=== PATIENT | male | born 1990 | race Caucasian/White ===

== ENCOUNTER 2018-06-21 17:02 | Inpatient (IN) | payer OTHER ==
[2018-06-21] MEDS ORDERED: MANNITOL 20% 100 GM/500 ML BAG IV ONE ×2 (17:09→20:22)
[2018-06-21] MEDS ORDERED: ONDANSETRON 4 MG/2 ML VIAL ONE (17:11)
[2018-06-21] MEDS ORDERED: CEFAZOLIN 1 GM/DEXTROSE/50 ML BAG IV ONE ×2 (17:12→17:13)
[2018-06-21] MEDS ORDERED: ONDANSETRON 4 MG/2 ML VIAL IVP ONE (17:12)
[2018-06-21] MEDS ORDERED: ceFAZolin 2 GM/DEXTROSE 100 ML IV ONE (17:17)
[2018-06-21] MEDS ORDERED: levETIRAcetam 1000MG/NACL 100 ML IV ONE ×2 (17:30→17:48)
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
[2018-06-21] MEDS ORDERED: fentaNYL 100 MCG/2 ML INJ IVP ONE ×5 (17:35→19:27)
[2018-06-21] MEDS ORDERED: PANTOPRAZOLE SODIUM 40 MG VIAL IVP ONE (17:50)
[2018-06-21] MEDS ORDERED: fentanYL/NACL/100 ML BAG IV ONE (17:50)
[2018-06-21] MEDS ORDERED: NS 1,000 ML IV ONE ×2 (17:55→18:45)
[2018-06-21] MEDS ORDERED: fentaNYL/NACL 100 ML IV SCH ×2 (18:00)
[2018-06-21] MEDS ORDERED: KETAMINE 500 MG/10 ML VIAL IVP ONE (18:12)
[2018-06-21] MEDS ORDERED: fentaNYL 100 MCG/2 ML INJ ONE ×2 (19:01→19:50)
[2018-06-21] MEDS ORDERED: VECURONIUM BROMIDE 10 MG VIAL IV ONE (19:27)
[2018-06-21] MEDS ORDERED: VECURONIUM BROMIDE 10 MG VIAL ONE (19:50)
[2018-06-21] MEDS ORDERED: KETAMINE 200 MG/20 ML VIAL ONE (19:51)
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
[2018-06-21 20:13] LABS: PLATELET COUNT 245 10^3/uL (150-400)
[2018-06-21] MEDS ORDERED: PROPOFOL 200 MG/20 ML VIAL ONE (20:17)
[2018-06-21] MEDS ORDERED: BACITRACIN ZINC 14.2 GM OINTTUBE TP ONE ×2 (20:18→21:45)
[2018-06-21] MEDS ORDERED: ROCURONIUM 50 MG/5 ML VIAL ONE (20:18)
[2018-06-21] MEDS ORDERED: BUPIVACAINE/EPI 0.25% 30 ML SDV ONE (20:18)
[2018-06-21] MEDS ORDERED: AVITENE POWDER 1 GM JAR TP ONE (20:19)
[2018-06-21] MEDS ORDERED: GENTAMICIN SULFATE 80 MG/2 ML VIAL ONE (20:19)
[2018-06-21] MEDS ORDERED: CHLORHEXIDINE GLUC HIBICLENS 118 ML BTL TP ONE (20:20)
[2018-06-21] MEDS ORDERED: SURGIFLO MATRIX KIT WITH THROMBIN 8 ML TP ONE (20:21)
[2018-06-21] MEDS ORDERED: THROMBIN (BOVINE) 5,000 UNIT VIAL TP ONE ×2 (20:22→20:34)
[2018-06-21] MEDS ORDERED: POVIDONE-IODINE 30 GM OINTTUBE TP ONE (20:22)
[2018-06-21] MEDS ORDERED: levETIRAcetam 500MG/NACL 100 ML IV ONE (20:30)
[2018-06-21] MEDS ORDERED: NOREPINEPHRINE BITARTRATE 4 MG in NS 500 ML IV SCH (20:30)
[2018-06-21] MEDS ORDERED: MANNITOL 20% 250 ML IV ONE (20:30)
[2018-06-21] MEDS ORDERED: niCARdipine/NACL 200 ML IV ONE (20:30)
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
[2018-06-21] MEDS ORDERED: PETROLAT,WHT/MIN OIL/SOD CHL 3.5 GM OPHT.OINT ONE (20:42)
[2018-06-21 20:43] LABS: INR 2.42 (0.83-1.16); PROTIME(PATIENT) 26.3 SEC (12.0-15.0)
[2018-06-21 20:44] LABS: INR 1.71 (0.83-1.16); PROTIME(PATIENT) 20.2 SEC (12.0-15.0)
[2018-06-21] MEDS ORDERED: NALOXONE HCL 0.4 MG/ML INJ IVP PRN (20:46)
[2018-06-21] MEDS ORDERED: PETROLAT,WHT/MIN OIL/SOD CHL 3.5 GM OPHT.OINT EACHEYE PRN (20:46)
[2018-06-21] MEDS ORDERED: ONDANSETRON DISINTEGRATING 4 MG TAB PO PRN (20:46)
[2018-06-21] MEDS ORDERED: HYDROmorphONE/DILAUDID 1 MG/ML INJ IVP PRN (20:58)
[2018-06-21 21:00] LABS: PLATELET COUNT 172 10^3/uL (150-400)
[2018-06-21] MEDS ORDERED: ACETAMINOPHEN 500 MG TAB PO SCH (21:00)
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
[2018-06-21 21:06] LABS: PLATELET COUNT 245 10^3/uL (150-400)
[2018-06-21] MEDS ORDERED: ceFAZolin 1 GM VIAL ONE ×2 (21:08)
[2018-06-21] MEDS ORDERED: ALBUMIN 5% 250 ML BOTTLE IV ONE (21:38)
--- NOTE | 2018-06-21 22:28 | POSTOPPROG ---
Post Op Note Date of Operation: 06/21/18 Surgeon: Yehuda Merino Supervising Architect: Baldomero Rodriguez PA_C Anesthesia: GET(General Endotracheal) Pre-op Diagnosis: severe blunt head trauma with malignant intracranial hypertension Post-op Diagnosis: same Indication: very elevated ICPs, medically intractable Procedure: left decompressive hemicraniectomy Findings: diffusely and severely swollen cerebral hemisphere Inf/Abcess present in the surg proc area at time of surgery?: No Depth: Organ Space EBL: 50-100 Total fluids administered: per anesthesia Complications: none other than due to nature of his disease Drains: Chintan Kelsey (#7 to suction)
--- NOTE | 2018-06-21 22:38 | POSTOPPROG ---
Post Op Note Date of Operation: 06/21/18 Surgeon: Yehuda Merino Needle Valve Operator: Baldomero Rodriguez Anesthesiologist: Jose Anesthesia: GET(General Endotracheal) Pre-op Diagnosis: Suboccipital hemorrhage, Left SDH Post-op Diagnosis: same Indication: elevated ICP Procedure: Left hemicraniectomy Findings: severe edema, left SDH Inf/Abcess present in the surg proc area at time of surgery?: No EBL: 100-500 Complications: None Drains: Chintan Kelsey (to dimple suction)
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
--- NOTE | 2018-06-21 22:48 | POSTANESTH ---
Post Anesthetic Evaluation Cardiovascular Status: Similar to Pre-Op Cond (on levophed.) Respiratory Status: Similar to Pre-op Cond. (on 100% O2, O2Sat 99,) Level of Consciousness/Mental Status: Other, See Comment (On ventilator, being sedated.) Complications Possibly Related to Anesthesia: None Noted
[2018-06-21] MEDS ORDERED: ALBUMIN 5% 500 ML BOTTLE IV ONE (22:54)
[2018-06-21] MEDS ORDERED: ALBUMIN 5% 500 ML IV ONE (23:00)
[2018-06-21 23:04] LABS: INR 1.85 (0.83-1.16); PROTIME(PATIENT) 21.4 SEC (12.0-15.0)
[2018-06-21] MEDS ORDERED: SODIUM BICARBONATE 50 MEQ/50 ML SYR ONE ×2 (23:20→23:22)
[2018-06-21] MEDS: PHENYLEPHRINE HCL 50 MG in NS 250 ML IV SCH (23:28)
[2018-06-21] MEDS: PROPOFOL/EMULSION 100 ML IV SCH (23:29)
[2018-06-21] MEDS: SODIUM Cl 3% 500 ML IV SCH (23:29)
--- NOTE | 2018-06-21 23:40 | POSTOPPROG ---
Post Op Note Date of Operation: 06/21/18 Surgeon: Ravi Mccloud Pre-op Diagnosis: Multiple trauma Post-op Diagnosis: Multiple trauma Indication: Monitoring Procedure: Placement of right femoral A-line Findings: Multiple trauma Inf/Abcess present in the surg proc area at time of surgery?: No
--- NOTE | 2018-06-21 23:44 | POSTOPPROG ---
Post Op Note Date of Operation: 06/21/18 Surgeon: Ravi Mccloud Pre-op Diagnosis: Multiple trauma Post-op Diagnosis: Multiple trauma Indication: Monitoring, venous access Procedure: Left supraclavicular access to subclavian vein Findings: Multiple trauma Inf/Abcess present in the surg proc area at time of surgery?: No
[2018-06-22] MEDS: VECURONIUM BROMIDE 50 MG in D5W 50 ML IV SCH ×4 (00:06→23:25)
[2018-06-22 00:08] LABS: INR 1.78 (0.83-1.16); PROTIME(PATIENT) 20.8 SEC (12.0-15.0)
--- NOTE | 2018-06-22 00:29 | GOP ---
DATE OF OPERATION: 06/21/2018 SURGEON: Ravi Mccloud MD PREOPERATIVE DIAGNOSIS: Multiple trauma. POSTOPERATIVE DIAGNOSIS: Multiple trauma. PROCEDURE PERFORMED: Placement of a right femoral arterial line. FINDINGS: Multiple trauma. INDICATIONS: Monitoring. DESCRIPTION OF PROCEDURE: This patient was hypotensive. I felt that most expeditious way to achieve arterial monitoring was to placed a right femoral A- line. The groin was carefully clipped, prepped, and draped. Time-out was agreed to by the ICU staff. The artery was punctured on the first pass. The guidewires was threaded. Needle was removed, leaving the guidewire in place. The arterial catheter was carefully fed over the guidewire. It was secured in place with a stitch. A Biopatch was placed. The guidewire was then removed and was connected to a monitoring device. Tegaderm was placed over it. There was a good waveform identified. The patient tolerated the procedure well. /[id number]/MODL MTDD
[2018-06-22] MEDS ORDERED: PROTOCOL MAGNESIUM 1 DOSE IV PRN (00:30)
[2018-06-22] MEDS ORDERED: PROTOCOL K PHOSPHATE 1 DOSE IV PRN (00:30)
[2018-06-22] MEDS ORDERED: PROTOCOL CALCIUM 1 DOSE IV PRN (00:30)
[2018-06-22] MEDS ORDERED: PROTOCOL POTASSIUM 1 DOSE MISC PRN (00:30)
--- NOTE | 2018-06-22 00:34 | GPN ---
DATE OF PROCEDURE: 06/21/2018 PREOPERATIVE DIAGNOSIS: Multiple trauma. INDICATION: Monitoring and venous access. POSTOPERATIVE DIAGNOSIS: Multiple trauma. FINDINGS: Multiple trauma. NAME OF PROCEDURE: Placement of a left supraclavicular subclavian central line. DESCRIPTION OF PROCEDURE: The patient was carefully positioned in the Trendelenburg position. He thomas d received a fluid bolus to maximize the venous distention. Full sterile field was developed. Subcl celine approach was tried without success. After three passes, I opted to not pursue this approach fu rther. Supraclavicular approach was tried, and on the very first pass I accessed the subclavian vein via the supraclavicular approach. A guidewire was fed centrally. The syringe and needle were remov ed over the guidewire. The skin was incised. A dilator was carefully passed and removed. The tripl e-lumen catheter, whose blue and white ports had been capped with Hep-Lock adapters and flushed with saline, was carefully passed over the guidewire. It was passed centrally to a point of 15 cm. The g uidewire was removed. A Hep-Lock adapter was placed on the brown port. The brown port was flushed. The line was secured at the skin level and on the anterior chest with 3-0 silk suture. Biopatch was applied. Tegaderm was placed. A chest x-ray showed the line to be in good position. /[id number]/MODL
[2018-06-22] MEDS ORDERED: CALCIUM GLUCONATE 50 ML IV ONE ×2 (01:11→05:25)
[2018-06-22] MEDS ORDERED: MANNITOL 20% 125 ML IV ONE (01:15)
[2018-06-22] MEDS: fentaNYL/NACL 100 ML IV SCH ×4 (02:45→23:25)
[2018-06-22] MEDS: ACETAMINOPHEN 650 MG/20.3 ML UDCUP PO SCH ×2 (03:28→13:08)
[2018-06-22] MEDS: PROPOFOL/EMULSION 100 ML IV SCH ×4 (03:29→21:54)
[2018-06-22] MEDS: NOREPINEPHRINE BITARTRATE 4 MG in NS 500 ML IV SCH ×3 (03:42→12:41)
[2018-06-22] MEDS: SODIUM Cl 3% 500 ML IV SCH ×3 (03:44→23:31)
[2018-06-22 04:51] LABS: INR 1.54 (0.83-1.16); PROTIME(PATIENT) 18.6 SEC (12.0-15.0)
[2018-06-22] MEDS: CLINDAMYCIN 600 MG/DEXTROSE 50 ML IV SCH ×3 (05:11→21:02)
[2018-06-22] MEDS ORDERED: MANNITOL 25% 12.5 GM/50 ML VIAL IVP ONE (05:15)
[2018-06-22] MEDS ORDERED: MAGNESIUM SULF 2 GM/WATER 50 ML IV ONE (05:25)
[2018-06-22] MEDS ORDERED: ALBUMIN 5% 500 ML IV ONE (05:30)
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
[2018-06-22] MEDS: POTASSIUM Cl (KCl) 50 ML IV SCH ×3 (08:20→11:09)
[2018-06-22] MEDS ORDERED: MANNITOL 25% 12.5 GM/50 ML VIAL IV ONE ×2 (08:45→16:30)
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
--- NOTE | 2018-06-22 09:57 | GCON ---
CRITICAL CARE CONSULT DATE OF CONSULTATION: 06/21/2018 HISTORY OF PRESENT ILLNESS: This patient is a 27-year-old male who [facility] into a tree at [place] without a helmet. He was down for an unknown period of time before EMS arrived. He was intubated in the field with a cervical collar placed and was taken to the operating room where he required an emergent decompression craniotomy and had mandibular fractures. Hermilo shell also had 3rd rib fracture and his surgery involved a left decompressive hemicraniectomy due to diff use and severe swollen cerebral hemispheres. There were no obvious surgical complications. He returne d to the intensive care unit on a ventilator. Blood gas drawn at the time of arrival, however, showed a pH of 7.13, pCO2 of 66, pO2 of 30, bicarb of 22 with a saturation of 39% despite an oxygen saturat ion in the 90s on the monitor. This was suspicious for venous gas; however, due to close correlations with pH and CO2 on venous blood gases, his respiratory rate was increased to 30 and a new gas is pen ding at this time. REVIEW OF SYSTEMS: Unable to be obtained. PAST MEDICAL HISTORY: None. PAST SURGICAL HISTORY: Unable to be obtained. PREVIOUS MEDICATIONS: Unknown. PHYSICAL EXAM: VITAL SIGNS: He has been afebrile. He was 34.8 on arrival, now 37, heart rate 120, re spiratory rate of 39, oxygen saturation 97%. He is on assist control with a rate of 30, tidal volume of 600, FiO2 60% and 5 of PEEP. GENERAL: He is obtunded. HEENT: Pupils appear to be fixed. He has of 7.[address]. LUNGS: His breath sounds were remarkably clear and equal bilaterally without obvious subcutaneous emphysema in his neck. He did appear to be in some respiratory distress taking deep breaths with variable tidal volumes on the ventilator. HEART: Regular rate and rhythm wit hout murmurs, rubs, gallops. ABDOMEN: Soft, nontender, nondistended without hepatosplenomegaly. EXTRE MITIES: Show no clubbing, cyanosis, or edema. OBJECTIVE DATA: Includes a chest x-ray from earlier today at 1934 showing severe diffuse bilateral i nfiltrates, certainly worse in the right upper lung zone, but in both with relative sparing of the le ft lower lobe. A repeat film that was performed at 2326 shows improvement in infiltrates. The endotra cheal tube is in adequate position. There is no subcutaneous air. There is a small apical pneumothora x as pointed out by the radiologist and there are displaced 3rd and 4th rib fractures. White count was last measured at 14.9, hematocrit 35, and platelets of 172. Repeat is pending. His la st coags were drawn at 2245, his INR was 1.8. A basic metabolic panel drawn at 2245 shows sodium 143, potassium 4.2, chloride 112, bicarb 24, BUN 11, creatinine 1.1, glucose 121. LFTs drawn earlier toda y were normal. ASSESSMENT/PLAN: 1. Severe blunt trauma with significant head injury and bilateral infiltrates on his chest x-ray, co mplicated by a tiny pneumothorax. In terms of the infiltrates, this could easily be contusion, there is showing rapid improvement or pulmonary edema, such as might be seen in neurogenic pulmonary edema. His oxygen saturation seems to be quite stable and we can continue to titrate the FiO2. I do not fee l that additional diuretics are indicated at this time, though mannitol may be considered from a neur osurgery perspective. In addition, I would like to give him antibiotics. He received Ancef perioperat ively and may have a penicillin allergy, so clindamycin would be my second choice and will see what h is white count does, as well as temperature curve, and chest x-ray after that. 2. Respiratory acidosis. There was some concern about the blood gas being drawn from central line an d dilutional issues. The respiratory rate was increased and a repeat blood gas is pending at this robi e, and I would like to err on the side of hyperventilation, rather than hypoventilation at least for the first 24 hours to minimize increased intracranial pressure. 3. Tiny possible pneumothorax on the chest x-ray. I have looked at this film myself, along with Dr. Mccloud. It is very small and we both agree that no direct intervention is required at this time and w e will continue to follow with serial chest x-rays. A total of about 55 minutes of critical care time was required for this patient. /[id number]/MODL
[2018-06-22] MEDS: FAMOTIDINE 20 MG/NACL 50 ML IV SCH ×2 (10:37→20:58)
[2018-06-22 10:42] LABS: PLATELET COUNT 90 10^3/uL (150-400)
[2018-06-22] MEDS: PHENYLEPHRINE HCL 50 MG in NS 250 ML IV SCH ×2 (11:01→15:36)
[2018-06-22] MEDS ORDERED: levETIRAcetam 500 MG/5 ML UDCUP PO SCH (11:45)
[2018-06-22] MEDS ORDERED: K PHOS 20 MMOL in D5W 250 ML IV ONE (12:00)
--- NOTE | 2018-06-22 13:45 | SOAPPROG ---
SOAP Progress Note Assessment/Plan: Assessment: R tibia shaft fracture in setting of catastrophic head injury. R non -displaced scapular body fx -I reviewed CT scan of chest. Scapular fx is non-displaced. No intervention necessary -The tibia shaft fx is length stable pattern. Splint is adequate for immobilization -I was informed that the prognosis for his head injury is poor Plan: -If prognosis for head injury improves, it would be feasible to perform tibia IMN. -Maintain splint for now. The post aspect of splint should be occasionally checked for skin breakdown 06/22/18 13:47 Subjective: Pt seen this morning in the ICU. I was accompanied by ICU staff. His RLE appears well splinted. Objective: Vital Signs Temp Pulse Resp BP Pulse Ox 37.0 C 78 18 145/57 H 100 06/22/18 13:00 06/22/18 13:00 06/22/18 13:00 06/22/18 13:00 06/22/18 13:00 Laboratory Results 06/22/18 12:00 06/22/18 12:00 06/21/18 06/22/18 06/23/18 05:59 05:59 05:59 Intake Total 9925.0 1833.1 Output Total 3919 1168 Balance 6006.0 665.1 PT 18.6 SEC (12.0-15.0) H 06/22/18 04:30 INR 1.54 (0.83-1.16) H 06/22/18 04:30 RLE -splint in place, the leg is moderately swollen, but soft and compressible -2+ DP pulse ICD10 Worksheet Patient Problems: Problems Problem Status Onset Closed fracture of right tibia and fibula Acute Multiple rib fractures Acute Pulmonary contusion Acute Traumatic brain injury Acute Traumatic compression fracture of T5 thoracic vertebra Acute
--- NOTE | 2018-06-22 14:10 | TRAUMAPNT ---
Trauma Tertiary Progress Note New Findings: minimal fracture in body of right scapula noted Assessment/Plan: PAD#1 POD#1 06/22/2018 Assessment: Neuro: Patient still obtunded. no withdrawal to painful stimulus ICP= 19, MAP=78 - CPP= 59 On levophed @ 16, Marcos @ 180 3% NS @ 50 Vc=374 CT shows increased right occipital SDH Respiratory Resp 18, TV 600, PEEP 5, FiO2 .4 Mode AC Vec @ 1.4 mcg/kg/min Prop @ 30 mcg/kg/min Fent @ 150 mcg/hr pH 7.4, PCO2 35, SAT 96%, BE -2.5 CXR still shows bilat pulmonary contusions and increasing right apical PTX ( but not large enough yet for chest tube) Chest- right scapular fx ( minimal), right ribs 3&4 fx, Sternal Fracture, T5 chance fracture Nutrition: Not started yet Plan: Neuro - continue stabilization process - spoke with family at rounds about setting hard timeline decision points as to choosing pathways Respiratory- although doubt aspiration Clindamycin has been added. Stabilizing, will follow CXR for possible chest tube Nutrition - consider starting feeds tomorrow if stabilization continues. Change NG to Dobbhoff tube CV support- change a-line from femoral to radial site, change to vasopressin from marcos Subjective: intubated/obtunded Objective: Vital Signs Temp Pulse Resp BP Pulse Ox 37.0 C 78 18 145/57 H 100 06/22/18 13:00 06/22/18 13:00 06/22/18 13:00 06/22/18 13:00 06/22/18 13:00 Laboratory Results 06/22/18 12:00 06/22/18 12:00 06/21/18 06/22/18 06/23/18 05:59 05:59 05:59 Intake Total 9925.0 1833.1 Output Total 3919 1168 Balance 6006.0 665.1 PT 18.6 SEC (12.0-15.0) H 06/22/18 04:30 INR 1.54 (0.83-1.16) H 06/22/18 04:30 - C-Spine Clearance Cervical Spine Cleared: Yes Provider who Cleared Cervical Spine: Rogers Physical Exam - Physical Exam General Appearance: WD/WN, obtunded Respiratory: lungs clear, normal breath sounds Cardiac/Chest: regular rate, rhythm Abdomen: soft, other (hypoactive bowel sounds) Rectal: deferred Back: Normal inspection Skin: normal color, warm/dry Extremities: other (right lower leg in splint) Neuro/Psych: other (non-responsive. obtunded)
--- NOTE | 2018-06-22 14:39 | SOAPPROG ---
SOAP Progress Note Assessment/Plan: Assessment: R tibia shaft fracture in setting of catastrophic head injury. R non -displaced scapular body fx -I reviewed CT scan of chest. Scapular fx is non-displaced. No intervention necessary -The tibia shaft fx is length stable pattern. Splint is adequate for immobilization -I was informed that the prognosis for his head injury is poor Plan: -If prognosis for head injury improves, it would be feasible to perform tibia IMN. -Maintain splint for now. The post aspect of splint should be occasionally checked for skin breakdown Subjective: Ravi was seen in the ICU this morning. I was accompanied by ICU staff. Crani performed last night Objective: Vital Signs Temp Pulse Resp BP Pulse Ox 37.0 C 77 18 142/56 H 100 06/22/18 14:00 06/22/18 14:00 06/22/18 14:00 06/22/18 14:00 06/22/18 14:00 Laboratory Results 06/22/18 12:00 06/22/18 12:00 06/21/18 06/22/18 06/23/18 05:59 05:59 05:59 Intake Total 9925.0 1886.1 Output Total 3919 1399 Balance 6006.0 487.1 PT 18.6 SEC (12.0-15.0) H 06/22/18 04:30 INR 1.54 (0.83-1.16) H 06/22/18 04:30 RLE -splint in place -the R leg is moderately swollen, but compartments are soft and compressible -2+ DP pulse ICD10 Worksheet Patient Problems: Problems Problem Status Onset Closed fracture of right tibia and fibula Acute Multiple rib fractures Acute Pulmonary contusion Acute Traumatic brain injury Acute Traumatic compression fracture of T5 thoracic vertebra Acute
[2018-06-22 14:49] LABS: INR 1.77 (0.83-1.16); PROTIME(PATIENT) 20.7 SEC (12.0-15.0)
[2018-06-22] MEDS: VASOPRESSIN 25 UNIT in NS 250 ML IV SCH (16:05)
[2018-06-22] MEDS ORDERED: ONDANSETRON DISINTEGRATING 4 MG TAB TUBE PRN (16:30)
--- NOTE | 2018-06-22 16:46 | SUROPNOTE ---
[facility] Operative Report - Surgery Procedure: Left arterial line placement with ultrasound guidance Physician: Dr. Meka Roberto MD Anesthesiologist: N/A Anesthesia Type: N/A Indication: shock and respiratory failure requiring frequent ABGs Consent: The patient's family was counseled as to the risks, benefits, and alternatives to the procedure and they agreed to proceed. Signed consent was obtained and placed into chart. Time-Out: Prior to the procedure, time-out was performed to verify patient's name, date of , correct procedure, correct side, correct site, correct patient position, correct radiographic data, and special equipment required. Pre-Op Dx: shock Post-Op Dx: shock Medications: none Description: Hand hygiene was perfomed. The site was selected as the optimal site for procedure, given considerations of sterility and safety. The left forearm region was prepped with Chloraprep prior to catheter insertion and with maximal sterile precautions (including gown, sterile gloves, mask, cap, and large sterile draping). Under real-time ultrasound guidance was used to visualize the left radial artery. Pulsatile flow was noted. Under real-time ultrasound guidance the left radial artery was cannulated with a 20 gauge catheter over the needle. Next the wire was passed through needle into artery. Catheter was secured in place, sutured, and dressed. Arterial waveform was noted from the transduced pressure signal. EBL: <1 ml Complications: none Specimens Sent: none Implants: N/A F/U: routine arterial line care S Luis Alberto Roberto MD Pulmonary and Critical Care Medicine Pager [phone]
--- NOTE | 2018-06-22 16:47 | PDINTPN ---
Clinic Licensed Practical Nurse Progress Note Assessment/Plan: Assessment: Plan: Objective: Vital Signs Temp Pulse Resp BP Pulse Ox 36.9 C 70 18 153/62 H 100 06/22/18 16:00 06/22/18 16:00 06/22/18 16:00 06/22/18 16:00 06/22/18 16:00 Laboratory Results 06/22/18 12:00 06/22/18 16:10 06/21/18 06/22/18 06/23/18 05:59 05:59 05:59 Intake Total 9925.0 1886.1 Output Total 3919 1484 Balance 6006.0 402.1 PT 20.7 SEC (12.0-15.0) H 06/22/18 14:30 INR 1.77 (0.83-1.16) H 06/22/18 14:30 ICD10 Worksheet Patient Problems: Problems Problem Status Onset Closed fracture of right tibia and fibula Acute Multiple rib fractures Acute Pulmonary contusion Acute Traumatic brain injury Acute Traumatic compression fracture of T5 thoracic vertebra Acute
--- NOTE | 2018-06-22 17:06 | PDGENHP ---
History and Physical - Chief Complaint Found down - History of Present Illness Bill is a previously healthy 27-year-old male who was found down in the trees after an accident for an unknown amount of time [place] while skiing. Per report , patient collided with a tree without a helmet. He was evacuated by helicopter to [facility] intubated EN route. Arrival he was hypothermic obtunded unreactive pupils and a scalp laceration. After obtaining IV access and being resuscitated he was taken to the OR for urgent craniotomy. In addition to his left subdural hematoma, posterior fossa hemorrhage with uncal and brainstem herniation and subarachnoid hemorrhage is also note of a T5 compression fracture, a comminuted right tibial fracture as well as right-sided rib fractures and a nondisplaced right scapula scapular fracture. Due to difficulties controlling ICP is paralyzed and on a hypertonic drip. He has post hypovolemic shock vaso plegia and with a high SCV O2 sat is on 3 vasopressors. History Information - Allergies/Home Medication List Allergies/Adverse Reactions: Penicillins Allergy (Mild, Verified 06/22/18 11:23) Rash Home Medications: Unobtainable 06/21/18 [Last Taken Unknown] I have personally reviewed and updated: family history, medical history, social history, surgical history - Past Medical History Additional medical history: History of right-sided spontaneous pneumothorax but previously healthy - Family History Additional family history: No family history of severe TBI - Social History Smoking Status: Unknown if ever smoked Review of Systems Review of Systems: Unable to obtain secondary to patient's mental status Physical Exam Physical Exam: Temp Pulse Resp BP Pulse Ox 36.9 C 70 18 153/62 H 100 06/22/18 16:00 06/22/18 16:00 06/22/18 16:00 06/22/18 16:00 06/22/18 16:00 FIO2 (%) 40 Constitutional: other (Obtunded sedated) Eyes: other (3 mm pupils minimally reactive to light) Ears, Nose, Mouth, Throat: other (Head bandaged in G-tube in place ET tube in place) Cardiovascular: regular rate and rhythym, no murmur, rub, or gallop Respiratory: other (Intubated sedated mechanical breath sounds) Skin: warm Musculoskeletal: other (Immobilized in bed. Right lower extremity splinted and wrap) Neurologic: other (Obtunded, paralyzed crown nerves 2-3 mm minimally reactive) Psychiatric: other (Obtunded) Lab Data & Imaging Review 06/22/18 12:00 06/22/18 16:10 WBC 8.28 10^3/uL (3.80-9.50) 06/22/18 12:00 RBC 2.67 10^6/uL (4.40-6.38) L 06/22/18 12:00 Hgb 8.7 g/dL (13.7-17.5) L 06/22/18 12:00 POC Hgb 6.8 gm/dL (13.7-17.5) L 06/21/18 22:58 Hct 24.3 % (40.0-51.0) L 06/22/18 12:00 POC Hct 20 % (40-51) L 06/21/18 22:58 MCV 91.0 fL (81.5-99.8) 06/22/18 12:00 MCH 32.6 pg (27.9-34.1) 06/22/18 12:00 MCHC 35.8 g/dL (32.4-36.7) 06/22/18 12:00 RDW 12.4 % (11.5-15.2) 06/22/18 12:00 Plt Count 83 10^3/uL (150-400) L 06/22/18 12:00 MPV 10.2 fL (8.7-11.7) 06/22/18 09:25 Neut % (Auto) 74.9 % (39.3-74.2) H 06/22/18 09:25 Lymph % (Auto) 15.4 % (15.0-45.0) 06/22/18 09:25 Winkler % (Auto) 7.9 % (4.5-13.0) 06/22/18 09:25 Eos % (Auto) 1.1 % (0.6-7.6) 06/22/18 09:25 Baso % (Auto) 0.2 % (0.3-1.7) L 06/22/18 09:25 Nucleat RBC Rel Count 0.0 % (0.0-0.2) 06/22/18 09:25 Absolute Neuts (auto) 6.29 10^3/uL (1.70-6.50) 06/22/18 09:25 Absolute Lymphs (auto) 1.29 10^3/uL (1.00-3.00) 06/22/18 09:25 Absolute Monos (auto) 0.66 10^3/uL (0.30-0.80) 06/22/18 09:25 Absolute Eos (auto) 0.09 10^3/uL (0.03-0.40) 06/22/18 09:25 Absolute Basos (auto) 0.02 10^3/uL (0.02-0.10) 06/22/18 09:25 Absolute Nucleated RBC 0.00 10^3/uL (0-0.01) 06/22/18 09:25 Immature Gran % 0.5 % (0.0-1.1) 06/22/18 09:25 Seg Neutrophils % 46.9 % 06/22/18 09:25 Band Neutrophils % 31.2 % 06/22/18 09:25 Lymphocytes % 14.6 % 06/22/18 09:25 Monocytes % 2.1 % 06/22/18 09:25 Eosinophils % 3.1 % 06/22/18 09:25 Basophils % 0.0 % 06/22/18 09:25 Metamyelocytes % 2.1 % 06/22/18 09:25 Myelocytes % 0.0 % 06/22/18 09:25 Promyelocytes % 0.0 % 06/22/18 09:25 Blast Cells % 0.0 % 06/22/18 09:25 Immature Gran # 0.04 10^3/uL (0.00-0.10) 06/22/18 09:25 Absolute Seg Neuts 3.93 10^3/uL (1.70-6.50) 06/22/18 09:25 Absolute Band Neuts 2.62 10^3/uL (0.00-0.70) H 06/22/18 09:25 Absolute Lymphocytes 1.22 10^3/uL (1.00-3.00) 06/22/18 09:25 Absolute Monocytes 0.18 10^3/uL (0.30-0.80) L 06/22/18 09:25 Absolute Eosinophils 0.26 10^3/uL (0.03-0.40) 06/22/18 09:25 Absolute Basophils 0.00 10^3/uL (0.02-0.10) L 06/22/18 09:25 Absolute Metamyelocyte 0.18 10^3/mL (0.00-0.00) H 06/22/18 09:25 Absolute Myelocytes 0.00 10^3/mL (0.00-0.00) 06/22/18 09:25 Absolute Promyelocytes 0.00 10^3/uL (0.00-0.00) 06/22/18 09:25 Absolute Plasma Cells 0.00 10^3/uL (0.00-0.00) 06/22/18 09:25 Nucleated RBCs 0 /100 WBC (0-0) 06/22/18 09:25 RBC/WBC/PLT Morphology NORMAL (NORMAL) 06/22/18 09:25 Absolute Blast Cells 0.00 10^3/uL (0.00-0.00) 06/22/18 09:25 Plasma Cells % 0.0 % 06/22/18 09:25 Platelet Estimate DECREASED (ADEQ) L 06/22/18 09:25 Normal RBC Morphology SEE COMMENT (NORMAL) 06/21/18 17:13 PT 20.7 SEC (12.0-15.0) H 06/22/18 14:30 INR 1.77 (0.83-1.16) H 06/22/18 14:30 APTT 73.4 SEC (23.0-38.0) H 06/21/18 23:40 Fibrinogen 124 mg/dL (214-456) L 06/21/18 17:13 D-Dimer > 20.00 ug/mLFEU (0.00-0.50) H 06/21/18 17:13 Coag Pathologist Merle KRAUS MD 06/21/18 17:13 POC Blood Source ARTERIAL 06/21/18 22:49 Puncture Site RIGHT FEMORAL 06/22/18 12:00 Patient Temperature 36.9 DEGREES 06/22/18 12:00 pCO2 35 mmHg (34-38) 06/22/18 12:00 pO2 84 mmHg (65-75) H 06/22/18 12:00 Total CO2 22 mEq/L (23-27) L 06/22/18 12:00 POC ABG pH 7.13 (7.35-7.45) L* 06/21/18 22:49 ABG pH 7.40 (7.35-7.45) 06/22/18 12:00 POC ABG pCO2 66 mmHg (34-38) H 06/21/18 22:49 POC ABG pO2 30 mmHg (65-75) L* 06/21/18 22:49 ABG PO2/FiO2 Ratio 211 RATIO 06/22/18 12:00 POC ABG HCO3 22 mEq/L (22-26) 06/21/18 22:49 ABG HCO3 21 mEq/L (22-26) L 06/22/18 12:00 POC ABG Total CO2 24 mEq/L (23-27) 06/21/18 22:49 POC ABG O2 Sat 39 % (92-95) L 06/21/18 22:49 ABG O2 Sat (Calculated) 98.2 % (92-95) H 06/21/18 23:40 ABG O2 Saturation 96 % (92-95) H 06/22/18 12:00 POC ABG Base Excess -7.0 mEq/L (-2.5-2.5) L 06/21/18 22:49 ABG Base Excess -2.5 mEq/L (-2.5-2.5) 06/22/18 12:00 ABG Lactic Acid 2.1 mmol/L (0.5-1.6) H 06/22/18 12:00 VBG pH 7.39 (7.31-7.42) 06/22/18 10:45 VBG HCO3 21 mEQ/L (22-26) L 06/22/18 10:45 VBG Total CO2 22 mEq/L (21-27) 06/22/18 10:45 VBG O2 Saturation 79 % (65-75) H 06/22/18 10:45 VBG Base Excess -2.8 mEq/L (-2.5-2.5) L 06/22/18 10:45 VBG Lactic Acid 3.5 mmol/L (0.7-2.1) H 06/21/18 23:40 Mixed VBG pCO2 36 mmHg (40-44) L 06/22/18 10:45 Mixed VBG pO2 44 mmHG (35-40) H 06/22/18 10:45 Total O2 Concentration Cancelled 12/04/18 23:40 O2 Concentration % 40 % (0-100) 06/22/18 12:00 Respiration Rate 18 06/22/18 12:00 Actual Respiration Rate Cancelled 06/21/18 23:40 Set Respiration Rate 18 06/22/18 12:00 SIMV Cancelled 06/21/18 23:40 Assist Control YES 06/22/18 12:00 Vent Rate Cancelled 06/21/18 23:40 POC FiO2 60.0000 % (0-100) 06/21/18 22:49 Inspiratory Time Cancelled 06/21/18 23:40 Expiratory Pressure Cancelled 06/21/18 23:40 Tidal Volume 600 06/22/18 12:00 End Tidal CO2 16 06/22/18 09:25 PEEP 5 06/22/18 12:00 Inspiratory Pressure Cancelled 06/21/18 23:40 Peak Inspir Pressure Cancelled 06/21/18 23:40 Pressure Support Cancelled 06/21/18 23:40 Pressure Control Cancelled 06/21/18 23:40 CPAP Cancelled 06/21/18 23:40 BiPAP Cancelled 06/21/18 23:40 Mode BiPAP Cancelled 06/21/18 23:40 Inspir/Expir Ratio Cancelled 06/21/18 23:40 POC Sodium 145 mEq/L (135-145) 06/21/18 22:58 Sodium 150 mEq/L (135-145) H 06/22/18 16:10 POC Potassium 4.1 mEq/L (3.3-5.0) 06/21/18 22:58 Potassium 4.2 mEq/L (3.5-5.2) 06/22/18 16:10 POC Chloride 106 mEq/L (97-110) 06/21/18 22:58 Chloride 123 mEq/L (97-110) H 06/22/18 12:00 Carbon Dioxide 24 mEq/l (22-31) 06/22/18 12:00 Anion Gap 2 mEq/L (6-14) L 06/22/18 12:00 POC BUN 10 mg/dL (7-23) 06/21/18 22:58 BUN 10 mg/dL (7-23) 06/22/18 12:00 Creatinine 0.9 mg/dL (0.7-1.3) 06/22/18 12:00 POC Creatinine 1.1 mg/dL (0.7-1.3) 06/21/18 22:58 Estimated GFR > 60 06/22/18 12:00 Glucose 100 mg/dL (70-100) 06/22/18 12:00 POC Glucose 121 mg/dL (70-100) H 06/21/18 22:58 Serum Osmolality 312 mosmo/kg (280-297) H 06/22/18 12:00 POC Lactic Acid Arter 4.2 mmol/L (0.5-1.6) H 06/21/18 22:49 Calcium 7.9 mg/dL (8.5-10.4) L 06/22/18 12:00 Ionized Calcium 1.20 MMOL/L (1.12-1.30) 06/22/18 10:45 Phosphorus 0.6 mg/dL (2.5-4.5) L 06/22/18 04:30 Magnesium 1.4 mg/dL (1.6-2.3) L 06/22/18 04:30 Total Bilirubin 0.6 mg/dL (0.1-1.4) 06/21/18 20:00 AST 48 IU/L (17-59) 06/21/18 20:00 ALT 34 IU/L (21-72) 06/21/18 20:00 Alkaline Phosphatase 44 IU/L (38-126) 06/21/18 20:00 Total Protein 3.9 g/dL (6.3-8.2) L 06/21/18 20:00 Albumin 2.3 g/dL (3.5-5.0) L 06/21/18 20:00 Patient ABO/Rh O POSITIVE 06/21/18 20:16 Antibody Screen NEGATIVE 06/21/18 20:16 Crossmatch IS Only See Detail 06/21/18 20:16 Bld Prod Verbal Order YES 06/21/18 20:16 Visualized and Interpreted Chest x-ray results: Yes Chest X-Ray results: other (Small right apical pneumothorax) Assessment & Plan Assessment: 27-year-old male status post severe TBI while skiing 06/21/18 with left SDH, SAH , posterior fossa hemorrhage, brainstem herniation, acute blood loss anemia, and various fractures # shock - post ischemia vasosplegia (distributive) # Severe TBI - L SDH, SAH, posterior fossa hemorrhage, brainstem and uncal herniation s/p crani and EVD 06/21/18 # hypoxemic respiratory failure # rib fractures, R scapular fracture, T5 compression fracture # pulmonary contusions # pneumothorax, right sided # hypervolemia # aspiration pneumonitis PLAN # goal ICP <20, maintain CPP >60 with vasopressors # add vasopressin due to shock refractory to NE and Marcos # trend serum Na goal 145 # continue sedation, paralysis # check procalcitonin, if low will stop abx # follow daily CXR, may eventually need chest tube # replace femoral arterial line with L radial art line # will eventually need to change ETT that was placed in the field due to small size and lack of subglottic suctioning port # follow CBC and coags # daily abg while intubated and paralyzed # poor prognosis, will continue to update family EVENTS 06/21/18 skier vs tree 06/21/18 intubation, L supraclavicular subclavian, L femoral art line, craniotomy and EVD 06/22/18 L radial art line, removed R radial art line IMAGING I reviewed interpreted patient's radiographic images as well as formal radiology reads 06/22/2018 chest x-ray persistent bilateral pulmonary opacities, slightly increased size of right apical pneumothorax 06/22/2018 CT head-interval left decompressive craniotomy with significant improvement degree of herniation. Right temporal/occipital extra-axial hemorrhage, bifrontal contusions with subarachnoid hemorrhage 06/21/2018 CT chest abdomen pelvis with contrast- bilateral pulmonary contusions and posterior aspects of upper lobes right greater than left, mildly displaced fractures of posterior lateral right 3rd and 4th ribs, nondisplaced fracture of the right scapula, compression fracture of T5 Patient is critically ill due to multiorgan failure, ongoing shock and increased intracranial pressure requiring deep sedation and paralysis. Total critical care time spent with patient 128 minutes exclusive of any procedures
[2018-06-22] MEDS ORDERED: fentaNYL 100 MCG/2 ML INJ IVP ONE (18:45)
[2018-06-22] MEDS: NOREPINEPHRINE BITARTRATE 16 MG in NS 250 ML IV SCH (18:45)
[2018-06-22] MEDS ORDERED: LIDOCAINE 2% 100 MG/5 ML SYR IVP ONE (18:45)
[2018-06-22] MEDS ORDERED: ATROPINE SULFATE 1 MG/10 ML SYR ONE (18:54)
[2018-06-22] MEDS: levETIRAcetam 500 MG/5 ML UDCUP TUBE SCH (21:00)
[2018-06-22] MEDS: ACETAMINOPHEN 650 MG/20.3 ML UDCUP TUBE SCH (21:01)
--- NOTE | 2018-06-22 22:56 | SUROPNOTE ---
[facility] Operative Report - Surgery Endotracheal Intubation Date and Time 06/22/181899 Operators S Luis Alberto Roberto MD Indication Respiratory failure, malfunctioning endotracheal tube (placed in the field) Consent Emergency procedure in a critically ill decompensating patient Preoxygenation mechanical ventilation Medications deep sedation with propofol and fentanyl as well as 100 mg lidocaine and vecuronium infusion Equipment Mac 3 7.5 ETT Gum elastic stylet Maccormick phelan grade view intubation 2 Number of Attempts 1 Description of procedure Due to issues with patient's intracranial ICP he was maintained in a semi recumbent position at approximately 45 degrees. After administering additional 50 mcg bolus of fentanyl and 100 mg of IV lidocaine, I proceed to stand behind and above the patient on the hospital bed frame. A Mac 3 laryngoscope blade was inserted into the patient's oropharynx. Significant pooled blood in the posterior oropharynx was noted and suctioned. Next the bougie was passed through the ET tube and the ET tube was removed. Subsequently, a 7.5 endotracheal tube with subglottic suctioning port was passed over the bougie with mild difficulties into the trachea. The endotracheal tube was secured at 24 cm at the teeth. A postprocedure chest x-ray confirmed appropriate placement and a persistent but stable right-sided apical pneumothorax Complications None
[2018-06-22] MEDS ORDERED: PENTOBARBITAL SODIUM 1,000 MG in D5W 250 ML IV SCH (23:30)
[2018-06-23] MEDS: PROPOFOL/EMULSION 100 ML IV SCH ×6 (01:05→21:50)
[2018-06-23] MEDS ORDERED: MANNITOL 25% 12.5 GM/50 ML VIAL IV ONE (01:15)
[2018-06-23] MEDS: VASOPRESSIN 25 UNIT in NS 250 ML IV SCH ×3 (01:21→22:59)
[2018-06-23] MEDS ORDERED: NS IV SCH (01:30)
[2018-06-23] MEDS ORDERED: [UNRECOGNIZED DRUG - OTHER] IV SCH (01:30)
[2018-06-23] MEDS: ACETAMINOPHEN 650 MG/20.3 ML UDCUP TUBE SCH ×3 (05:15→20:56)
[2018-06-23] MEDS: CLINDAMYCIN 600 MG/DEXTROSE 50 ML IV SCH ×3 (05:15→20:57)
[2018-06-23] MEDS: fentaNYL/NACL 100 ML IV SCH ×4 (05:28→21:32)
[2018-06-23] MEDS: NOREPINEPHRINE BITARTRATE 16 MG in NS 250 ML IV SCH ×2 (06:09→15:07)
[2018-06-23] MEDS: PHENYLEPHRINE HCL 50 MG in NS 250 ML IV SCH (06:09)
[2018-06-23] MEDS: SODIUM Cl 3% 500 ML IV SCH ×2 (06:17→15:08)
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
[2018-06-23] MEDS: FAMOTIDINE 20 MG/NACL 50 ML IV SCH ×2 (09:29→20:55)
[2018-06-23] MEDS: levETIRAcetam 500 MG/5 ML UDCUP TUBE SCH ×2 (09:34→20:56)
--- NOTE | 2018-06-23 10:19 | TRAUMAPN ---
Trauma Progress Note Assessment/Plan: PAD#1 POD#1 06/22/2018 Assessment: Neuro: Patient still obtunded. no withdrawal to painful stimulus ICP= 19, MAP=78 - CPP= 59 On levophed @ 16, Marcos @ 180 3% NS @ 50 Pc=386 CT shows increased right occipital SDH Respiratory Resp 18, TV 600, PEEP 5, FiO2 .4 Mode AC Vec @ 1.4 mcg/kg/min Prop @ 30 mcg/kg/min Fent @ 150 mcg/hr pH 7.4, PCO2 35, SAT 96%, BE -2.5 CXR still shows bilat pulmonary contusions and increasing right apical PTX ( but not large enough yet for chest tube) Chest- right scapular fx ( minimal), right ribs 3&4 fx, Sternal Fracture, T5 chance fracture Nutrition: Not started yet Plan: Neuro - continue stabilization process - spoke with family at rounds about setting hard timeline decision points as to choosing pathways Respiratory- although doubt aspiration Clindamycin has been added. Stabilizing, will follow CXR for possible chest tube Nutrition - consider starting feeds tomorrow if stabilization continues. Change NG to Dobbhoff tube CV support- change a-line from femoral to radial site, change to vasopressin from marcos PAD#2 POD#2 NG tube replaced with Dobbhoff last PM ET tube replaced over bougie last PM (7 to 7.5) to improve abilityto suction Assessment: Neuro: Due to high ICP, pentobarb coma induced. Rate increased this AM as pupillary reaction had been maintained. Patient obtunded due to injury as well as vecuronium ,propofol , fentanyl F/u CT shows stable subdural, increased edema but no shift Still on 3%NS, Has received repeat Mannitol tx, Na in goal range Dr. Coyle to discuss assessment/plans with family Respiratory: Stable PTX increased. note is made that he has had a spontaneous PTX in past. Scarring from prior PTX may be limiting collapse. Intervention will be planned based on further plans by NS Nutrition not started due to incomplete treatment plan formulation. Subjective: intubated, sedated, injured Objective: Vital Signs Temp Pulse Resp BP Pulse Ox 35.2 C L 98 16 130/71 H 95 06/23/18 09:00 06/23/18 09:00 06/23/18 09:00 06/23/18 09:00 12/06/18 09:00 Laboratory Results 06/23/18 08:00 06/23/18 08:00 06/22/18 06/23/18 06/24/18 05:59 05:59 05:59 Intake Total 9925.0 6182.9 Output Total 3919 4213 264 Balance 6006.0 1969.9 -264 PT 20.7 SEC (12.0-15.0) H 06/22/18 14:30 INR 1.77 (0.83-1.16) H 06/22/18 14:30 - C-Spine Clearance Cervical Spine Cleared: Yes Provider who Cleared Cervical Spine: Rogers Physical Exam - Physical Exam General Appearance: WD/WN, obtunded EENT: other (Dobbhoff tube in place, Intubated) Respiratory: lungs clear, normal breath sounds Cardiac/Chest: regular rate, rhythm Abdomen: soft, distended, other (no stool yet) Male Genitalia: deferred Rectal: deferred Back: Other (no rolled due to T5 injury) Skin: normal color, warm/dry, other (diffuse edema present) Extremities: other (right leg in splint) Neuro/Psych: other (in induced coma, and coma due to injury)
[2018-06-23] MEDS: VECURONIUM BROMIDE 50 MG in D5W 50 ML IV SCH (15:09)
--- NOTE | 2018-06-23 15:34 | ASMTCMCOM ---
CM Note CM Note Notes: Prepared letters for patient's family members. Patient has a poor prognosis. Paula Becerril notified and will be here tomorrow. Repeat CT today. CM will follow. Date Signed: 06/23/2018 03:34 PM Electronically Signed By:Pippa Morales LCSW
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
[2018-06-23] MEDS ORDERED: NS 1,000 ML IV SCH (21:30)
[2018-06-24] MEDS: NOREPINEPHRINE BITARTRATE 16 MG in NS 250 ML IV SCH (04:52)
[2018-06-24] MEDS: ACETAMINOPHEN 650 MG/20.3 ML UDCUP TUBE SCH (05:57)
[2018-06-24] MEDS: VASOPRESSIN 25 UNIT in NS 250 ML IV SCH (05:57)
[2018-06-24] MEDS: CLINDAMYCIN 600 MG/DEXTROSE 50 ML IV SCH (05:57)
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
[2018-06-24] MEDS: POTASSIUM Cl (KCl) 50 ML IV SCH ×6 (07:23→21:22)
[2018-06-24] MEDS: levETIRAcetam 500 MG/5 ML UDCUP TUBE SCH ×2 (07:25→21:31)
[2018-06-24] MEDS: FAMOTIDINE 20 MG/NACL 50 ML IV SCH (07:25)
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
[2018-06-24] MEDS ORDERED: K PHOS 10 MMOL in D5W 250 ML IV ONE (12:00)
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
[2018-06-24] MEDS ORDERED: PROTOCOL POTASSIUM 1 DOSE MISC PRN (14:26)
[2018-06-24] MEDS ORDERED: PROTOCOL CALCIUM 1 DOSE IV PRN (14:26)
--- NOTE | 2018-06-24 16:52 | ASMTCMCOM ---
CM Note CM Note Notes: Spoke with patient's mother to give her the information regarding a benefit patient has with his insurance. [facility], partner integration planner is Crystal Galloway ([phone]). His benefit includes [employer] that will help with transportation for the patient back home should he not survive. [employer] does require that they make all the arrangements if they are to pay for the travel. Crystal will be the manufacturing storeperson to get the process started if it is needed. CM will follow. Date Signed: 06/24/2018 04:52 PM Electronically Signed By:Pippa Morales LCSW
[2018-06-24 18:05] LABS: PLATELET COUNT 76 10^3/uL (150-400)
[2018-06-24 18:12] LABS: INR 1.53 (0.83-1.16); PROTIME(PATIENT) 18.5 SEC (12.0-15.0)
[2018-06-25] MEDS: POTASSIUM Cl (KCl) 50 ML IV SCH ×3 (01:49→03:03)
[2018-06-25] MEDS ORDERED: POTASSIUM Cl (KCl) 50 ML IV ONE ×2 (05:52→13:53)
[2018-06-25] MEDS: FAMOTIDINE 20 MG/NACL 50 ML IV SCH (07:09)
[2018-06-25] MEDS: levETIRAcetam 500 MG/5 ML UDCUP TUBE SCH ×2 (09:42→21:51)
[2018-06-25] MEDS ORDERED: D5W LR 1,000 ML IV SCH (10:15)
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
--- NOTE | 2018-06-25 11:07 | PDINTPN ---
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 Interval worsening on imaging and uncontrollable ICPs. Injuries are not compatible with life. Donor Rusk has been in touch with family and following along. # shock - post ischemia vasosplegia (distributive) # Catastrophic TBI - L SDH, SAH, posterior fossa hemorrhage, brainstem and uncal herniation s/p crani and EVD 06/21/18 # hypoxemic respiratory failure # rib fractures, R scapular fracture, T5 compression fracture # pulmonary contusions # pneumothorax, right sided # hypervolemia # aspiration pneumonitis PLAN # maintain EVD clamped # follow-up pentobarbital level, perform formal brain testing once level is <10 # off paralysis # pentobarb off since 06/23/18 AM # sedation off since 06/24/18 AM # maintain normothermia # trend BMP and CBC to prior to possible organ donation # ppx abx per donor [facility] #Appreciate Neurosurgery Trauma and case management and # poor prognosis, as above EVENTS 06/21/18 skier vs tree 06/21/18 intubation, L supraclavicular subclavian, L femoral art line, craniotomy and EVD 06/22/18 L radial art line, removed R radial art line IMAGING I reviewed interpreted patient's radiographic images as well as formal radiology reads 06/24/2018 CT head with interval worsening of intracranial pathology 06/24/2018 chest x-ray with grossly stable cardiacthoracic abnormalities 06/23/18 CT head withh interval evolution of ICH 06/23/18 CXR with interval progression of R sided effusion, grossly stable ptx 06/22/2018 chest x-ray persistent bilateral pulmonary opacities, slightly increased size of right apical pneumothorax 06/22/2018 CT head-interval left decompressive craniotomy with significant improvement degree of herniation. Right temporal/occipital extra-axial hemorrhage, bifrontal contusions with subarachnoid hemorrhage 06/21/2018 CT chest abdomen pelvis with contrast- bilateral pulmonary contusions and posterior aspects of upper lobes right greater than left, mildly displaced fractures of posterior lateral right 3rd and 4th ribs, nondisplaced fracture of the right scapula, compression fracture of T5 Patient is critically ill due to multiorgan failure and impending . Total critical care time 55 min 06/25/18 11:13 Subjective: pentobarb level resulted >10, maintain on vasopressors to keep MAP >65, CT yesterday with interval worsening of intracranial pathology, no brainstem reflexes noted. Sedation and paralysis remains off. Multiple meetings with family Objective: Vital Signs Temp Pulse Resp BP Pulse Ox 36.7 C 75 16 126/72 H 100 06/25/18 08:00 06/25/18 09:43 06/25/18 09:43 06/25/18 08:00 06/25/18 09:43 Laboratory Results 06/25/18 07:50 06/25/18 05:00 06/24/18 06/25/18 06/26/18 05:59 05:59 05:59 Intake Total 2799 1963 Output Total 2112 1750 0 Balance 687 213 0 PT 18.5 SEC (12.0-15.0) H 06/24/18 17:45 INR 1.53 (0.83-1.16) H 06/24/18 17:45 Physical Exam - Physical Exam General Appearance: obtunded EENT: ET tube, other (Head bandaged) Respiratory: other (Course bilateral breath signs, synchronous with the ventilator) Cardiac/Chest: normal peripheral pulses, regular rate, rhythm, edema Abdomen: non-tender, soft Skin: pallor, No rash Extremities: other (Right lower extremity bandage) Neuro/Psych: other (Obtunded, nonresponsive cranial nerve reflexes absent) ICD10 Worksheet Patient Problems: Problems Problem Status Onset Closed fracture of right tibia and fibula Acute Multiple rib fractures Acute Pulmonary contusion Acute Right scapula fracture Acute Skull fracture Acute Traumatic brain injury Acute Traumatic compression fracture of T5 thoracic vertebra Acute
[2018-06-25 12:54] LABS: PLATELET COUNT 80 10^3/uL (150-400)
[2018-06-25] MEDS: PETROLAT,WHT/MIN OIL/SOD CHL 3.5 GM OPHT.OINT EACHEYE PRN (14:34)
--- NOTE | 2018-06-25 16:36 | NEUROPROG ---
Assessment: I came in to see the patient and perform a brain exam. I spoke with his mother and his ICU nurse. Brain exam requires a patient to fail the apnea test so I told his ICU nurse to call me after the apnea test. The ICU nurse told me the patient did breath on his own during apnea test so he would not meet brain criteria. Neurology will not perform formal exam at this time but will be happy to consult on the patient in the future if needed. I let the ICU nurse now this information and he was in agreement with the plan. Objective: Vital Signs Temp Pulse Resp BP Pulse Ox 36.6 C 72 11 L 123/69 H 100 06/25/18 14:00 06/25/18 14:00 06/25/18 14:00 06/25/18 14:00 06/25/18 14:00 Laboratory Results 06/25/18 12:25 06/25/18 12:25 06/24/18 06/25/18 06/26/18 05:59 05:59 05:59 Intake Total 2799 1963 Output Total 2112 1750 0 Balance 687 213 0 PT 18.5 SEC (12.0-15.0) H 06/24/18 17:45 INR 1.53 (0.83-1.16) H 06/24/18 17:45 Allergies/Adverse Reactions: Penicillins Allergy (Mild, Verified 06/22/18 11:23) Rash
--- NOTE | 2018-06-25 17:36 | TRAUMAPN ---
Trauma Progress Note Assessment/Plan: PAD#1 POD#1 06/22/2018 Assessment: Neuro: Patient still obtunded. no withdrawal to painful stimulus ICP= 19, MAP=78 - CPP= 59 On levophed @ 16, Marcos @ 180 3% NS @ 50 Ej=118 CT shows increased right occipital SDH Respiratory Resp 18, TV 600, PEEP 5, FiO2 .4 Mode AC Vec @ 1.4 mcg/kg/min Prop @ 30 mcg/kg/min Fent @ 150 mcg/hr pH 7.4, PCO2 35, SAT 96%, BE -2.5 CXR still shows bilat pulmonary contusions and increasing right apical PTX ( but not large enough yet for chest tube) Chest- right scapular fx ( minimal), right ribs 3&4 fx, Sternal Fracture, T5 chance fracture Nutrition: Not started yet Plan: Neuro - continue stabilization process - spoke with family at rounds about setting hard timeline decision points as to choosing pathways Respiratory- although doubt aspiration Clindamycin has been added. Stabilizing, will follow CXR for possible chest tube Nutrition - consider starting feeds tomorrow if stabilization continues. Change NG to Dobbhoff tube CV support- change a-line from femoral to radial site, change to vasopressin from marcos PAD#2 POD#2 NG tube replaced with Dobbhoff last PM ET tube replaced over bougie last PM (7 to 7.5) to improve abilityto suction Assessment: Neuro: Due to high ICP, pentobarb coma induced. Rate increased this AM as pupillary reaction had been maintained. Patient obtunded due to injury as well as vecuronium ,propofol , fentanyl F/u CT shows stable subdural, increased edema but no shift Still on 3%NS, Has received repeat Mannitol tx, Na in goal range Dr. Coyle to discuss assessment/plans with family Respiratory: Stable PTX increased. note is made that he has had a spontaneous PTX in past. Scarring from prior PTX may be limiting collapse. Intervention will be planned based on further plans by NS Nutrition not started due to incomplete treatment plan formulation. PAD#4 POD#[address] Roberto's very complete note. He has not failed apnea test yet. It is his sister's Birthday tomorrow and family would like postpone events if possible until after birthday. Objective: Vital Signs Temp Pulse Resp BP Pulse Ox 36.6 C 72 11 L 123/69 H 100 06/25/18 14:00 06/25/18 14:00 06/25/18 14:00 06/25/18 14:00 06/25/18 14:00 Laboratory Results 06/25/18 12:25 06/25/18 12:25 06/24/18 06/25/18 06/26/18 05:59 05:59 05:59 Intake Total 2799 1963 Output Total 2112 1750 0 Balance 687 213 0 PT 18.5 SEC (12.0-15.0) H 06/24/18 17:45 INR 1.53 (0.83-1.16) H 06/24/18 17:45 - C-Spine Clearance Cervical Spine Cleared: Yes Provider who Cleared Cervical Spine: Rogers
[2018-06-25 19:15] LABS: INR 1.26 (0.83-1.16)
[2018-06-25 19:32] LABS: PLATELET COUNT 85 10^3/uL (150-400)
[2018-06-26 01:43] LABS: PLATELET COUNT 84 10^3/uL (150-400)
[2018-06-26 05:10] LABS: PLATELET COUNT 82 10^3/uL (150-400)
[2018-06-26 05:17] LABS: INR 1.26 (0.83-1.16)
[2018-06-26] MEDS ORDERED: POTASSIUM Cl (KCl) 50 ML IV ONE ×2 (08:08→14:26)
[2018-06-26] MEDS: levETIRAcetam 500 MG/5 ML UDCUP TUBE SCH ×2 (08:43→21:19)
[2018-06-26] MEDS: PETROLAT,WHT/MIN OIL/SOD CHL 3.5 GM OPHT.OINT EACHEYE PRN (08:46)
--- NOTE | 2018-06-26 11:30 | TRAUMAPN ---
Trauma Progress Note Assessment/Plan: PAD#1 POD#1 06/22/2018 Assessment: Neuro: Patient still obtunded. no withdrawal to painful stimulus ICP= 19, MAP=78 - CPP= 59 On levophed @ 16, Marcos @ 180 3% NS @ 50 Mv=571 CT shows increased right occipital SDH Respiratory Resp 18, TV 600, PEEP 5, FiO2 .4 Mode AC Vec @ 1.4 mcg/kg/min Prop @ 30 mcg/kg/min Fent @ 150 mcg/hr pH 7.4, PCO2 35, SAT 96%, BE -2.5 CXR still shows bilat pulmonary contusions and increasing right apical PTX ( but not large enough yet for chest tube) Chest- right scapular fx ( minimal), right ribs 3&4 fx, Sternal Fracture, T5 chance fracture Nutrition: Not started yet Plan: Neuro - continue stabilization process - spoke with family at rounds about setting hard timeline decision points as to choosing pathways Respiratory- although doubt aspiration Clindamycin has been added. Stabilizing, will follow CXR for possible chest tube Nutrition - consider starting feeds tomorrow if stabilization continues. Change NG to Dobbhoff tube CV support- change a-line from femoral to radial site, change to vasopressin from marcos PAD#2 POD#2 NG tube replaced with Dobbhoff last PM ET tube replaced over bougie last PM (7 to 7.5) to improve abilityto suction Assessment: Neuro: Due to high ICP, pentobarb coma induced. Rate increased this AM as pupillary reaction had been maintained. Patient obtunded due to injury as well as vecuronium ,propofol , fentanyl F/u CT shows stable subdural, increased edema but no shift Still on 3%NS, Has received repeat Mannitol tx, Na in goal range Dr. Coyle to discuss assessment/plans with family Respiratory: Stable PTX increased. note is made that he has had a spontaneous PTX in past. Scarring from prior PTX may be limiting collapse. Intervention will be planned based on further plans by NS Nutrition not started due to incomplete treatment plan formulation. PAD#4 POD#[address] Roberto's very complete note. He has not failed apnea test yet. It is his sister's Birthday tomorrow and family would like postpone events if possible until after birthday. PAD#5 POD#5 Assessment: Patient has started decorticate posturing which has baffled the family leading to indecision about planned course of withdrawal. Plan: Dr. Coyle to see family today and review status Objective: Vital Signs Temp Pulse Resp BP Pulse Ox 37.2 C 96 27 H 135/68 H 100 06/26/18 10:00 06/26/18 10:48 06/26/18 10:48 06/26/18 10:00 06/26/18 10:48 Laboratory Results 06/26/18 05:00 06/26/18 05:00 06/25/18 06/26/18 06/27/18 05:59 05:59 05:59 Intake Total 1963 1145 Output Total 1750 2100 53 Balance 213 -955 -53 PT 16.0 SEC (12.0-15.0) H 06/26/18 05:00 INR 1.26 (0.83-1.16) H 06/26/18 05:00 - C-Spine Clearance Cervical Spine Cleared: Yes Provider who Cleared Cervical Spine: Rogers
[2018-06-26 13:52] LABS: PLATELET COUNT 93 10^3/uL (150-400)
--- NOTE | 2018-06-26 15:20 | PDINTPN ---
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 Interval worsening on imaging and uncontrollable ICPs. Injuries are not compatible with life. Donor Bastrop has been in touch with family and following along. # Catastrophic TBI - L SDH, SAH, posterior fossa hemorrhage, brainstem and uncal herniation s/p crani and EVD 06/21/18 # hypoxemic respiratory failure # pulmonary contusions # pneumothorax, right sided # shock - post ischemia vasosplegia (distributive), resolved # rib fractures, R scapular fracture, T5 compression fracture # hypervolemia # aspiration pneumonitis PLAN # ICP management with EVD. # No pentobarbital at this time unless family changes mind # continue ventilator support, wean as able # pentobarb off since 06/23/18 AM # sedation off since 06/24/18 AM # maintain normothermia # trend BMP and CBC to prior to possible organ donation # ppx abx per donor [facility] #Appreciate Neurosurgery Trauma and case management # CXR in AM # poor prognosis, as above EVENTS 06/21/18 skier vs tree 06/21/18 intubation, L supraclavicular subclavian, L femoral art line, craniotomy and EVD 06/22/18 L radial art line, removed R radial art line IMAGING I reviewed interpreted patient's radiographic images as well as formal radiology reads 06/24/2018 CT head with interval worsening of intracranial pathology 06/24/2018 chest x-ray with grossly stable cardiacthoracic abnormalities 06/23/18 CT head with interval evolution of ICH 06/23/18 CXR with interval progression of R sided effusion, grossly stable ptx 06/22/2018 chest x-ray persistent bilateral pulmonary opacities, slightly increased size of right apical pneumothorax 06/22/2018 CT head-interval left decompressive craniotomy with significant improvement degree of herniation. Right temporal/occipital extra-axial hemorrhage, bifrontal contusions with subarachnoid hemorrhage 06/21/2018 CT chest abdomen pelvis with contrast- bilateral pulmonary contusions and posterior aspects of upper lobes right greater than left, mildly displaced fractures of posterior lateral right 3rd and 4th ribs, nondisplaced fracture of the right scapula, compression fracture of T5 Patient is critically ill due to multiorgan failure and impending . Total critical care time 65 min 06/26/18 15:17 Subjective: Failed apnea test yesterday. Patient posturing, reactive pupils, no response to pain. Extensive family meetings yesterday regarding prognosis and end of life care Objective: Vital Signs Temp Pulse Resp BP Pulse Ox 37.3 C 79 27 H 135/76 H 99 06/26/18 14:00 06/26/18 14:00 06/26/18 14:00 06/26/18 14:00 06/26/18 14:00 Laboratory Results 06/26/18 12:05 06/26/18 12:05 06/25/18 06/26/18 06/27/18 05:59 05:59 05:59 Intake Total 1963 1145 Output Total 1750 2100 59 Balance 213 -955 -59 PT 16.0 SEC (12.0-15.0) H 06/26/18 05:00 INR 1.26 (0.83-1.16) H 06/26/18 05:00 Physical Exam - Physical Exam General Appearance: obtunded EENT: ET tube, other (pupils 3 mm symmetric, reactive to light) Neck: normal inspection Respiratory: other (coarse bibasilar breath sounds) Abdomen: non-tender, soft Skin: warm/dry, pallor Neuro/Psych: other (obtunded, PERRL. Intermittent gag, no corneal reflex, no response to pain, decerebrate posture) ICD10 Worksheet Patient Problems: Problems Problem Status Onset Closed fracture of right tibia and fibula Acute Multiple rib fractures Acute Pulmonary contusion Acute Right scapula fracture Acute Skull fracture Acute Traumatic brain injury Acute Traumatic compression fracture of T5 thoracic vertebra Acute
--- NOTE | 2018-06-26 15:37 | PDCONSULT ---
Chemical Recovery Operator Note: NEUROSURGERY I had a long conversation with Yan's family today. As his pentobarbitol has worn off, he has developed a cough, gag, reactive pupils, and decerebrate posturing. They had tried to do formal apnea testing yesterday, on which he had respiratory drive. He does not meet the criteria for brain . We talked for a long time about the expectations for the future. He has extensive anoxic brain injury and evidence of ischemia to both frontal and temporal lobes. The biggest burden of infarct is to the left frontal and temporal lobes. His ICPs have remained in the high 20s to 30s. I do not think that there is any realistic chance of meaningful recovery where he would be able to interact, speak, walk, or be independent. They are pretty clear that given his previous state of health and level of activity that he would not want that kind of existence. We discussed the options of escalating care again to do our best to control his ICPs, although realistically, I don't think this will be successful and I certainly don't think it would be likely to change the ultimate outcome. We also discussed withdrawl of care and/or organ donation. Ultimately his family has decided that existing in such a disabled state would not be consistent with his wishes and we will not escalate care. For now we will not withdraw any care either, and they are planning on proceeding with DCD organ donation tomorrow. They will maintain his DNR status. I did my best to answer all of their questions and provide as much support as I could. Jonna
[2018-06-26 18:23] LABS: PLATELET COUNT 95 10^3/uL (150-400)
[2018-06-26] MEDS: fentaNYL 100 MCG/2 ML INJ IVP PRN (21:19)
[2018-06-26] MEDS: ACETAMINOPHEN 650 MG/20.3 ML UDCUP TUBE PRN (22:30)
[2018-06-26 22:46] LABS: INR 1.4 (0.83-1.16); PROTIME(PATIENT) 17.3 SEC (12.0-15.0)
[2018-06-26] MEDS ORDERED: DIPHENHYDRAMINE CREAM TP ONE (23:00)
[2018-06-26] MEDS ORDERED: ACETAMINOPHEN 650 MG/20.3 ML UDCUP ONE (23:10)
[2018-06-26] MEDS: FAMOTIDINE 20 MG/NACL 50 ML IV SCH (23:20)
[2018-06-27] MEDS ORDERED: POTASSIUM Cl (KCl) 50 ML IV ONE ×2 (01:00→06:21)
[2018-06-27 05:44] LABS: PLATELET COUNT 90 10^3/uL (150-400)
[2018-06-27 05:52] LABS: INR 1.47 (0.83-1.16)
--- NOTE | 2018-06-27 08:18 | NEUSURGPN ---
Assessment/Plan: 27 yr old skiing accident with left SDH and posterior fossa hemorrhage with uncal and brainstem herniation superiorly and inferiorly, s/p left craniectomy with Dr Merino 06/21/18 POD#6 Plan: -CTH 06/24 shows worsened bilateral temporal IPH, otherwise stable -Grave prognosis. Family has been updated by Wilber Pineda and Jonna -Dr Coyle spoke with family for several hours yesterday and reviewed all images -off pressors and pentobarbital -no further aggressive ICP management, ICP 24 this am -Pentobarb has been off since 10 AM 06/23. No change in neuro exam -no further surgery recommended -Patient not candidate for donor/DCD, donor [facility] has signed off -Discussed plan with Dr. Coyle Please call neurosurgery with questions Subjective: unable to obtain Objective: pupils reactive 2-3mm, conjugate gaze moving RUE to painful stimuli per RN slight cough with ET tube manipulation Left flap full, not tense Incision CDI Neuro Check Frequency: per routine Urinary Catheter in Place: Yes Urinary Catheter Indication: Accurate I & O Required Catheter Insertion Date: 06/21/18 - Physician Discussed Patient with Dr.: Coyle Neurosurgery Physical Exam - Vitals, I&O, Labs I and O 06/26/18 06/27/18 06/28/18 05:59 05:59 05:59 Intake Total 1145 1637 Output Total 2100 2217 30 Balance -955 -580 -30 Intake: IV Intake (ml) 1237 IV Infused (ml) 1145 D5w Lr 1,000 ml @ 50 mls/ 470 hr IV CONT SAFIA Rx#: [id number] Ns 1,000 ml @ 75 mls/hr 575 IV CONT SAFIA Rx#: [id number] ceFAZolin 1 GM/DEXTROSE 100 50 ml @ 200 mls/hr IV Q8HRS SAFIA Rx#:[id number] Tube Flush (ml) 400 Output: Urine (ml) 2049 1999 Catheter 2049 1999 CSF Drainage Amount 30 207 30 Ventriculostomy 1 30 207 30 FABIOLA Drain Output (ml) 20 10 #1 Scalp Chintan Kelsey 20 10 Other: Number of Stools Incontinence 1 Vital Signs Temp Pulse Resp BP Pulse Ox 38.1 C 87 28 H 134/71 H 100 06/27/18 06:00 06/27/18 06:00 06/27/18 06:00 06/27/18 06:00 06/27/18 06:00 Laboratory Results 06/27/18 05:30 06/27/18 05:30 ICD10 Worksheet Patient Problems: Problems Problem Status Onset Closed fracture of right tibia and fibula Acute Multiple rib fractures Acute Pulmonary contusion Acute Right scapula fracture Acute Skull fracture Acute Traumatic brain injury Acute Traumatic compression fracture of T5 thoracic vertebra Acute
[2018-06-27] MEDS: FAMOTIDINE 20 MG/NACL 50 ML IV SCH ×2 (08:49→19:25)
[2018-06-27] MEDS: levETIRAcetam 500 MG/5 ML UDCUP TUBE SCH ×2 (08:49→19:24)
[2018-06-27] MEDS: ACETAMINOPHEN 650 MG/20.3 ML UDCUP TUBE PRN ×2 (08:49→13:45)
--- NOTE | 2018-06-27 10:18 | TRAUMAPN ---
Trauma Progress Note Assessment/Plan: PAD#1 POD#1 06/22/2018 Assessment: Neuro: Patient still obtunded. no withdrawal to painful stimulus ICP= 19, MAP=78 - CPP= 59 On levophed @ 16, Marcos @ 180 3% NS @ 50 Rj=410 CT shows increased right occipital SDH Respiratory Resp 18, TV 600, PEEP 5, FiO2 .4 Mode AC Vec @ 1.4 mcg/kg/min Prop @ 30 mcg/kg/min Fent @ 150 mcg/hr pH 7.4, PCO2 35, SAT 96%, BE -2.5 CXR still shows bilat pulmonary contusions and increasing right apical PTX ( but not large enough yet for chest tube) Chest- right scapular fx ( minimal), right ribs 3&4 fx, Sternal Fracture, T5 chance fracture Nutrition: Not started yet Plan: Neuro - continue stabilization process - spoke with family at rounds about setting hard timeline decision points as to choosing pathways Respiratory- although doubt aspiration Clindamycin has been added. Stabilizing, will follow CXR for possible chest tube Nutrition - consider starting feeds tomorrow if stabilization continues. Change NG to Dobbhoff tube CV support- change a-line from femoral to radial site, change to vasopressin from marcos PAD#2 POD#2 NG tube replaced with Dobbhoff last PM ET tube replaced over bougie last PM (7 to 7.5) to improve abilityto suction Assessment: Neuro: Due to high ICP, pentobarb coma induced. Rate increased this AM as pupillary reaction had been maintained. Patient obtunded due to injury as well as vecuronium ,propofol , fentanyl F/u CT shows stable subdural, increased edema but no shift Still on 3%NS, Has received repeat Mannitol tx, Na in goal range Dr. Coyle to discuss assessment/plans with family Respiratory: Stable PTX increased. note is made that he has had a spontaneous PTX in past. Scarring from prior PTX may be limiting collapse. Intervention will be planned based on further plans by NS Nutrition not started due to incomplete treatment plan formulation. PAD#4 POD#[address] Roberto's very complete note. He has not failed apnea test yet. It is his sister's Birthday tomorrow and family would like postpone events if possible until after birthday. PAD#5 POD#5 Assessment: Patient has started decorticate posturing which has baffled the family leading to indecision about planned course of withdrawal. Plan: Dr. Coyle to see family today and review status PAD#6 POD#6 06/27/2018 Assessment: Devastating injury, No chance of return to baseline function, Family having difficulty with decision to let go, requests one more CT of brain to help in their decision to extubate and withdraw. Has decorticate posturing with painful stimuli. Plan: CT with contrast When patient's family ready, proceed to extubation, DC Dobhoff, Clamp Ventriculostomy Subjective: obtunded Objective: Vital Signs Temp Pulse Resp BP Pulse Ox 38.5 C H 87 29 H 137/68 H 100 06/27/18 08:00 06/27/18 08:31 06/27/18 08:31 06/27/18 08:00 06/27/18 08:31 Laboratory Results 06/27/18 05:30 06/27/18 05:30 06/26/18 06/27/18 06/28/18 05:59 05:59 05:59 Intake Total 1145 1637 Output Total 2100 2217 790 Balance -955 -580 -790 PT 18.0 SEC (12.0-15.0) H 06/27/18 05:30 INR 1.47 (0.83-1.16) H 06/27/18 05:30 - C-Spine Clearance Cervical Spine Cleared: Yes Provider who Cleared Cervical Spine: Rogers Physical Exam - Physical Exam General Appearance: WD/WN, obtunded Neuro/Psych: other (obtunded, decorticate posturing with painful stimuli)
[2018-06-27] MEDS ORDERED: IOPAMIDOL (ISOVUE-300) 100 ML BTL ONE (11:31)
--- NOTE | 2018-06-27 11:44 | ASMTCMCOM ---
CM Note CM Note Notes: Much time spent with MD's consultation in educating family of patient's status. In ICU Rounds today they wanted one more brain CT Scan before withdrawing from care. CM to follow. Date Signed: 06/27/2018 11:44 AM Electronically Signed By:Bisi Carpenter LCSW
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
[2018-06-27] MEDS: fentaNYL 100 MCG/2 ML INJ IVP PRN (13:56)
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
[2018-06-27 23:01] VITALS: BP 136/88
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
== END 2018-06-27 22:35 | disposition expired | DRG 955 ==
LOC: EDBD 17:02 → F2N 20:00
PROVIDERS: ADMIT Surgery; ATTEND Surgery
PROC: 30233K1 Transfusion of Nonautologous Frozen Plasma into Peripheral Vein, Percutaneous Approach (ICD-10-PCS; 2018-06-21)
PROC: 009630Z Drainage of Cerebral Ventricle with Drainage Device, Percutaneous Approach (ICD-10-PCS; 2018-06-21)
PROC: 02HV33Z Insertion of Infusion Device into Superior Vena Cava, Percutaneous Approach (ICD-10-PCS; 2018-06-21)
PROC: 2W3LX1Z Immobilization of Right Lower Extremity using Splint (ICD-10-PCS; 2018-06-21)
PROC: 04HY32Z Insertion of Monitoring Device into Lower Artery, Percutaneous Approach (ICD-10-PCS; 2018-06-21)
PROC: 5A1955Z Respiratory Ventilation, Greater than 96 Consecutive Hours (ICD-10-PCS; 2018-06-21)
PROC: 30233N1 Transfusion of Nonautologous Red Blood Cells into Peripheral Vein, Percutaneous Approach (ICD-10-PCS; 2018-06-21)
PROC: 00900ZZ Drainage of Brain, Open Approach (ICD-10-PCS; principal; 2018-06-21 20:20)
PROC: 0BH17EZ Insertion of Endotracheal Airway into Trachea, Via Natural or Artificial Opening (ICD-10-PCS; 2018-06-22)
PROC: 03HY32Z Insertion of Monitoring Device into Upper Artery, Percutaneous Approach (ICD-10-PCS; 2018-06-22)
PROC: 0BP Respiratory System, Removal (ICD-10-PCS; 2018-06-22)
DX: G93.89 Other specified disorders of brain; S02.0XXA Fracture of vault of skull, initial encounter for closed fracture; R40.2111 Coma scale, eyes open, never, in the field [EMT or ambulance]; R40.2211 Coma scale, best verbal response, none, in the field [EMT or ambulance]; R40.2361 Coma scale, best motor response, obeys commands, in the field [EMT or ambulance]; S22.050A Wedge compression fracture of T5-T6 vertebra, initial encounter for closed fracture; S22.41XA Multiple fractures of ribs, right side, initial encounter for closed fracture; S27.321A Contusion of lung, unilateral, initial encounter; S27.2XXA Traumatic hemopneumothorax, initial encounter; S42.114A Nondisplaced fracture of body of scapula, right shoulder, initial encounter for closed fracture; S82.251A Displaced comminuted fracture of shaft of right tibia, initial encounter for closed fracture; S82.451A Displaced comminuted fracture of shaft of right fibula, initial encounter for closed fracture; T79.4XXA Traumatic shock, initial encounter; D62 Acute posthemorrhagic anemia; W22.09XA Striking against other stationary object, initial encounter; Y93.23 Activity, snow (alpine) (downhill) skiing, snowboarding, sledding, tobogganing and snow tubing; Y92.838 Other recreation area as the place of occurrence of the external cause; Y99.8 Other external cause status
CPT/HCPCS: 82435-PO; 82491-90; 82565-PO; 82947-PO; 83605-PO; 84132-PO; 84295-PO; 84520-PO; 85014-PO; 96365; J0461; J0610; J0690; J1580; J1953; J2001; J2150; J2270; J2370; J2405; J2515; J2704; J3010; J3475; J3480; P9016; P9017; P9041; Q9967

== ENCOUNTER 2018-06-24 15:00 | Inpatient (IN) | payer OTHER | END 2018-06-27 16:00 | disposition E | DRG 951 | LOC: F2N 15:00 | PROVIDERS: ADMIT Surgery; ATTEND Surgery | DX: Z52.89 Donor of other specified organs or tissues (principal) | CPT/HCPCS: 82491-90; J0690; J3010; J3480; Q9967 ==